=== PATIENT | female | born 1960 | race Asian ===

== ENCOUNTER 2018-12-06 08:47 | Emergency (ER) | payer BC ==
[~2018-12-06] VITALS: Ht 157.5 cm; Wt 63.5 kg
[2018-12-06 08:47] VITALS: BP_SYST 159
[2018-12-06] MEDS ORDERED: KETOROLAC TROMETHAMINE 60 MG/2 ML VIAL IM ONE (09:45)
[2018-12-06 10:09] LABS: HEMATOCRIT 39.5 % (36-48); HEMOGLOBIN 12.3 g/dL (12.0-16.0); RED BLOOD CELL COUNT(AUTO) 5.48 MIL/uL (4.2-6.2); WHITE BLOOD COUNT (AUTO) 7.3 K/uL (4.8-10.8)
[2018-12-06 10:10] LABS: BASOPHILS # (AUTO) 0.1 K/uL (0.0-0.2); BASOPHILS % (AUTO) 0.8 % (0.0-2.0); EOSINOPHILS # (AUTO) 0.1 K/uL (0.0-0.4); EOSINOPHILS % (AUTO) 1.9 % (0.0-4.0); LYMPHOCYTES # (AUTO) 1.9 K/uL (1.0-5.5); LYMPHOCYTES % (AUTO) 26.1 % (20.5-51.5); MEAN CORPUSCULAR HEMOGLOBIN 22 pg (27-31); MEAN CORPUSCULAR HGB CONC 31 % (32-36); MEAN CORPUSCULAR VOLUME 72 fL (79.0-98.0); MONOCYTES # (AUTO) 0.4 K/uL (0.0-1.0); NEUTROPHILS # (AUTO) 4.8 K/uL (1.8-7.7); NEUTROPHILS % (AUTO) 66.2 % (40.0-70.0); PLATELET COUNT (AUTO) 242 K/uL (130-430); RED CELL DISTRIBUTION WIDTH 15.8 % (9.0-15.0)
[2018-12-06 10:25] LABS: CALCIUM 9.1 mg/dL (8.4-11.0); CREATININE 0.85 mg/dL (0.55-1.30); POTASSIUM 4.2 mmol/L (3.5-5.1)
[2018-12-06 10:31] LABS: ALBUMIN 3.6 g/dL (3.4-4.8); TOTAL BILIRUBIN 0.3 mg/dL (0.0-1.0)
[2018-12-06 12:00] VITALS: BP_SYST 137
== END 2018-12-06 12:00 | disposition home or self-care (01) ==
LOC: SED 08:47
DX: G43.909 Migraine, unspecified, not intractable, without status migrainosus (principal); R11.0 Nausea; R03.0 Elevated blood-pressure reading, without diagnosis of hypertension; Z88.0 Allergy status to penicillin
CPT/HCPCS: 36415; 70450; 80053; 85025; 96372; 99284; J1885

== ENCOUNTER 2018-12-16 06:17 | Emergency (ER) | payer BC ==
[~2018-12-16] VITALS: Ht 157.5 cm; Wt 63.5 kg
[2018-12-16 06:20] VITALS: BP_SYST 154
[2018-12-16] MEDS ORDERED: SUMAtriptan SUCCINATE 6 MG/0.5 ML VIAL SUBCUT ONE (06:45)
[2018-12-16] MEDS ORDERED: ONDANSETRON 4 MG ODT TAB PO ONE (06:45)
[2018-12-16] MEDS ORDERED: MORPHINE 4 MG/ML INJ. SYRINGE IM ONE (07:15)
[2018-12-16 08:16] VITALS: BP_SYST 154
== END 2018-12-16 08:15 | disposition home or self-care (01) ==
LOC: SED 06:17
DX: G43.909 Migraine, unspecified, not intractable, without status migrainosus (principal); Z88.0 Allergy status to penicillin
CPT/HCPCS: 96372; 99283; J2270; J3030; Q0162